=== PATIENT | male | born 1995 | race African-American/Black ===

== ENCOUNTER 2023-12-02 09:22 | Emergency (ER) | payer MEDICAID ==
[~2023-12-02] VITALS: Ht 180.3 cm; Wt 95.3 kg
[2023-12-02 09:28] VITALS: O2SAT 100
[2023-12-02 10:56] VITALS: BP 114/54; PULSE 61; RESP 18; TEMP 98.5
== END 2023-12-02 11:04 | disposition home or self-care (01) ==
LOC: ER 09:22
DX: S63.91XA Sprain of unspecified part of right wrist and hand, initial encounter (principal); M84.441A Pathological fracture, right hand, initial encounter for fracture; J45.909 Unspecified asthma, uncomplicated; X58.XXXA Exposure to other specified factors, initial encounter; Y93.89 Activity, other specified; Y92.89 Other specified places as the place of occurrence of the external cause; Y99.8 Other external cause status
CPT/HCPCS: 73130; 99283